=== PATIENT | male | born 2000 | race Hispanic/Latino ===

== ENCOUNTER 2021-12-03 14:13 | Emergency (ER) | payer OTHER ==
[~2021-12-03] VITALS: Ht 172.7 cm; Wt 74.8 kg
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
[2021-12-03 14:19] VITALS: BP 126/78
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
[2021-12-03] MEDS ORDERED: NS 1000ML 1,000 ML ONE (14:26)
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
[2021-12-03 15:32] VITALS: BP 122/78
== END 2021-12-03 15:33 | disposition home or self-care (01) ==
LOC: ER 14:13 → EDBD 14:13 → ER 15:33
DX: S90.02XA Contusion of left ankle, initial encounter (principal); S90.512A Abrasion, left ankle, initial encounter; V49.9XXA Car occupant (driver) (passenger) injured in unspecified traffic accident, initial encounter; Y93.89 Activity, other specified; Y92.61 Building [any] under construction as the place of occurrence of the external cause; Y99.0 Civilian activity done for income or pay
CPT/HCPCS: 73590 ×2; 73610; 99284; J7030